=== PATIENT | male | born 1950 | race Two or more races ===

== ENCOUNTER 2017-03-23 21:06 | Inpatient (IN) | payer OTHER ==
[~2017-03-23 21:06] MED LIST: METFORMIN PO SCH; SAXAGLIPTIN PO SCH
[2017-03-23] MEDS ORDERED: Aspirin TAB* 325 MG PO ONE (21:52)
[2017-03-23 22:16] LABS: Hematocrit 43 % (42-52); Hemoglobin 13.8 g/dl (14.0-18.0); Mean Corpuscular HGB Conc 33 g/dl (31-36); Mean Corpuscular Hemoglobin 27 pg (27-31); Mean Corpuscular Volume 85 fL (80-94); Mean Platelet Volume 9 um3 (7.4-10.4); Red Blood Count 5.03 10^6/ul (4.0-5.4); Red Cell Distribution Width 16 % (10.5-15); White Blood Count 7.4 10^3/ul (3.5-10.8)
[2017-03-23 22:33] LABS: ALT 15 U/L (7-52); AST 18 U/L (13-39); Albumin 3.7 g/dL (3.2-5.2); Alkaline Phosphatase 62 U/L (34-104); Anion Gap 4 mmol/L (2-11); BUN/Creatinine Ratio 26.9 (8-20); Blood Urea Nitrogen 25 mg/dL (6-24); CO2 Carbon Dioxide 29 mmol/L (22-32); Calcium 9.1 mg/dL (8.6-10.3); Chloride 103 mmol/L (101-111); EGFR African American 103.9 (>60); EGFR Non-African American 80.8 (>60); Globulin 3.1 g/dL (2-4); Glucose 137 mg/dL (70-100); Potassium 4.3 mmol/L (3.5-5.0); Sodium 136 mmol/L (133-145); Total Protein 6.8 g/dL (6.4-8.9)
[2017-03-23 22:34] LABS: Troponin I 0.01 ng/mL (<0.04)
[2017-03-23 22:47] LABS: Alcohol < 10 mg/dL (<10)
[2017-03-23] MEDS ORDERED: Acetaminophen TAB* 325 MG PO PRN (23:21)
[2017-03-23] MEDS ORDERED: Ondansetron INJ* 2 MG/ML VIAL IV PRN (23:22)
[2017-03-23] MEDS ORDERED: CMCS: Melatonin (NF) 3 MG TAB PO PRN (23:22)
--- NOTE | 2017-03-23 23:25 | HP ---
H&P (Free Text) History and Physical: PCP: in [place] Date/Time of Evaluation: 03/23/2017 2320 CC: L facial droop HPI: Mr Valentine is a 66YO [place]ian male whose Uzbek is fair. He has a HX of DM2 & HTN. He presents for sudden onset L facial droop around 1900 this evening associated with fluid leak from the L mouth with drinking and slurred speech like his tongue was thick. This lasted for less than 10minutes before spontaneously resolving. He denies HX of similar, but does recall having a carotid US in [place] ~1 year ago which was reportedly normal. He called his insurance who advised him to present for evaluation. He currently reports being at baseline without any symptoms. His is present, but speaks very little Uzbek. His daughter who lives in [place] was updated of his condition and findings. 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 Father passed in his 60s of uncertain cause. ROS: as above, otherwise reviewed and all were negative Constitutional: NAD, normally developed, obese male vitals: Vital Signs Temp 37.2 C 03/23/17 22:18 Pulse 93 03/23/17 22:18 Resp 18 03/23/17 22:18 BP 138/75 03/23/17 22:18 Pulse Ox 96 03/23/17 22:18 Intake & Output 03/23/17 03/23/17 03/24/17 11:59 23:59 11:59 Weight 108 kg HEENM: atraumatic; sclera/conjunctiva: non-icteric/clear; hearing: clinically intact; oropharynx: clear, mucosa moist Neck: soft tissue: non-tender; thyroid: normal Pulmonary: clear to auscultation bilaterally, good aeration, no accessory muscle use CV: RR/RR, normal S1S2, no carotid bruit, no jugular venous distention, 2+ B DP/ PT, no edema Abdominal: soft, non-distended, non-tender, no rebound/guarding/rigidity, normoactive bowel sounds, no hepatosplenomegaly or masses, no costovertebral angle tenderness Musculoskeletal: general: grossly intact; gait: stable Integumental: normal appearance and texture of exposed skin Neurological cranial nerves III/IV/: symmetric light reflex, EOMI/PERRLA V: intact facial sensation & mastication VII: very subtle L facial droop, subtle weakness L eye clench VIII: hearing clinically intact IX/X: symmetric palatal motion, no dysarthria XII: midline tongue protrusion, normal voice articulation motor: R-handed LUE: 4+/5 proximally, distally, & 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8 L (14.0-18.0) g/dl Hct 43 (42-52) % MCV 85 (80-94) fL MCH 27 (27-31) pg MCHC 33 (31-36) g/dl RDW 16 H (10.5-15) % Plt Count 259 (150-450) 10^3/ul MPV 9 (7.4-10.4) um3 Neut % (Auto) 65.8 (38-83) % Lymph % (Auto) 19.9 L (25-47) % [place] % (Auto) 9.6 H (1-9) % Eos % (Auto) 3.8 (0-6) % Baso % (Auto) 0.9 (0-2) % Absolute Neuts (auto) 4.9 (1.5-7.7) 10^3/ul Absolute Lymphs (auto) 1.5 (1.0-4.8) 10^3/ul Absolute Monos (auto) 0.7 (0-0.8) 10^3/ul Absolute Eos (auto) 0.3 (0-0.6) 10^3/ul Absolute Basos (auto) 0.1 (0-0.2) 10^3/ul Absolute Nucleated RBC 0 10^3/ul Nucleated RBC % 0 INR (Anticoag Therapy) (0.89-1.11) Sodium 136 (133-145) mmol/L Potassium 4.3 (3.5-5.0) mmol/L Chloride 103 (101-111) mmol/L Carbon Dioxide 29 (22-32) mmol/L Anion Gap 4 (2-11) mmol/L BUN 25 H (6-24) mg/dL Creatinine 0.93 (0.67-1.17) mg/dL Est GFR ( Amer) 103.9 (>60) Est GFR (Non-Af Amer) 80.8 (>60) BUN/Creatinine Ratio 26.9 H (8-20) Glucose 137 H (70-100) mg/dL Lactic Acid 0.8 (0.5-2.0) mmol/L Calcium 9.1 (8.6-10.3) mg/dL Total Bilirubin 0.20 (0.2-1.0) mg/dL AST 18 (13-39) U/L ALT 15 (7-52) U/L Alkaline Phosphatase 62 (34-104) U/L Troponin I 0.01 (<0.04) ng/mL Total Protein 6.8 (6.4-8.9) g/dL Albumin 3.7 (3.2-5.2) g/dL Globulin 3.1 (2-4) g/dL Albumin/Globulin Ratio 1.2 (1-3) Urine Color Urine Appearance Urine pH (5-9) Ur Specific [place] (1.010-1.030) Urine Protein (Negative) Urine Ketones (Negative) Urine Blood (Negative) Urine Nitrate (Negative) Urine Bilirubin (Negative) Urine Urobilinogen (Negative) Ur Leukocyte Esterase (Negative) Urine Glucose (Negative) Serum Alcohol < 10 (<10) mg/dL 03/23/17 03/23/17 Range/Units 22:00 23:55 WBC (3.5-10.8) 10^3/ul RBC (4.0-5.4) 10^6/ul Hgb (14.0-18.0) g/dl Hct (42-52) % MCV (80-94) fL MCH (27-31) pg MCHC (31-36) g/dl RDW (10.5-15) % Plt Count (150-450) 10^3/ul MPV (7.4-10.4) um3 Neut % (Auto) (38-83) % Lymph % (Auto) (25-47) % [place] % (Auto) (1-9) % Eos % (Auto) (0-6) % Baso % (Auto) (0-2) % Absolute Neuts (auto) (1.5-7.7) 10^3/ul Absolute Lymphs (auto) (1.0-4.8) 10^3/ul Absolute Monos (auto) (0-0.8) 10^3/ul Absolute Eos (auto) (0-0.6) 10^3/ul Absolute Basos (auto) (0-0.2) 10^3/ul Absolute Nucleated RBC 10^3/ul Nucleated RBC % INR (Anticoag Therapy) 0.88 L (0.89-1.11) Sodium (133-145) mmol/L Potassium (3.5-5.0) mmol/L Chloride (101-111) mmol/L Carbon Dioxide (22-32) mmol/L Anion Gap (2-11) mmol/L BUN (6-24) mg/dL Creatinine (0.67-1.17) mg/dL Est GFR ( Amer) (>60) Est GFR (Non-Af Amer) (>60) BUN/Creatinine Ratio (8-20) Glucose (70-100) mg/dL Lactic Acid (0.5-2.0) mmol/L Calcium (8.6-10.3) mg/dL Total Bilirubin (0.2-1.0) mg/dL AST (13-39) U/L ALT (7-52) U/L Alkaline Phosphatase (34-104) U/L Troponin I (<0.04) ng/mL Total Protein (6.4-8.9) g/dL Albumin (3.2-5.2) g/dL Globulin (2-4) g/dL Albumin/Globulin Ratio (1-3) Urine Color Straw Urine Appearance Clear Urine pH 5.0 (5-9) Ur Specific [place] 1.011 (1.010-1.030) Urine Protein Negative (Negative) Urine Ketones Negative (Negative) Urine Blood Negative (Negative) Urine Nitrate Negative (Negative) Urine Bilirubin Negative (Negative) Urine Urobilinogen Negative (Negative) Ur Leukocyte Esterase Negative (Negative) Urine Glucose Negative (Negative) Serum Alcohol (<10) mg/dL ECG, personally reviewed: NSR rate 96, no ischemia CT brain WO, personally reviewed: no acute finding, final read pending Impression: 66M HX DM2 & HTN presents with TIA DIAGNOSIS & PLAN Primary TIA : telemetry : aspirin : CTA head/neck : recheck CT brain WO in AM : Yesi Rivero MD neurology consulted via Mojgan Oviedo MD ED; will evaluate in AM : supplemental oxygen : neurochecks : check lipid profile in AM : supportive care Secondary DM2 : continue saxagliptin/metformin once reconciled : ACHS glucometry : check A1c HTN : continue metoprolol & perindopril once reconciled BLE venous insufficiency, chronic : continue diosmin/hesperidin once reconciled Admission Rational: CDU observation for TIA work up DVTp: BRENNA Code Status: full HCP: ; daughter, Oseasda (pronounced [id number]) would like to be called an updated prior to discharge
[2017-03-24 00:03] LABS: Urine Bilirubin Negative (Negative); Urine Glucose Negative (Negative); Urine Nitrite Negative (Negative)
[2017-03-24] MEDS: Omeprazole CAP* 20 MG PO SCH (06:03)
--- NOTE | 2017-03-24 07:27 | RAD ---
INDICATION: Dysarthria. COMPARISON: There are no prior studies available for comparison. TECHNIQUE: Contiguous axial sections of the brain were obtained from the skull base to the vertex without contrast. FINDINGS: The ventricles, cisterns and sulci are within normal limits. There is a small to moderate size area of encephalomalacia present in the left occipital lobe most consistent with an old infarct. No other focal abnormalities or mass effect are seen. There is no evidence for hemorrhage. No significant focal osseous abnormality is seen. The visualized portion of the paranasal sinuses and mastoid air cells appear clear. IMPRESSION: 1. NO EVIDENCE FOR GROSS ACUTE INFARCT, MASS EFFECT OR HEMORRHAGE. 2. OLD LEFT OCCIPITAL LOBE INFARCT.
[2017-03-24] MEDS: Insulin LISPRO* 1 UNITS UNIT SUBCUT SCH ×4 (08:10→20:58)
[2017-03-24] MEDS ORDERED: PERINDOPRIL PO SCH (09:00)
[2017-03-24] MEDS ORDERED: Metoprolol Succinate XL TAB* 50 MG PO SCH (09:00)
[2017-03-24] MEDS: Aspirin EC Low Dose* 81 MG TAB.EC PO SCH (09:11)
[2017-03-24] MEDS: Docusate CAP* 100 MG PO SCH ×2 (09:11→20:53)
[2017-03-24] MEDS ORDERED: Iodixanol* (CONTRAST) 320 MG/ML 100 ML SDV IV ONE (12:31)
--- NOTE | 2017-03-24 13:19 | RAD ---
INDICATION: TIA, CVA workup. COMPARISON: There is an is made with a prior CT of the brain from March 23, 2017. TECHNIQUE: Contiguous axial sections of the brain were obtained from the skull base to the vertex without contrast. FINDINGS: The ventricles, cisterns and sulci are within normal limits. There is a new hypodense area present in the posterior right frontal lobe involving the cortex and subcortical white matter. The hypodense area measures 2.3 x 2.2 cm in size and would be most consistent with a nonhemorrhagic infarct. There is minimal local mass effect with compression of the anterior aspect of the sylvian fissure. Again note is made of a small to moderate size area of encephalomalacia present in the left occipital lobe most consistent with an old infarct. There is no evidence for hemorrhage. No significant focal osseous abnormality is seen. The visualized portion of the paranasal sinuses and mastoid air cells appear clear. IMPRESSION: 1. FINDINGS CONSISTENT WITH AN ACUTE NONHEMORRHAGIC INFARCT IN THE RIGHT FRONTAL LOBE. 2. OLD INFARCT IN THE LEFT OCCIPITAL LOBE.
--- NOTE | 2017-03-24 13:36 | RAD ---
Indication: Transient ischemic attack, stroke. Contrast: Administered 80.2 ml of VISIPAQUE 320 mg/ml CTA of the neck and head was performed after IV contrast administration. Coronal, 3-D reconstructed and sagittal images were obtained. The origins of the great vessels are unremarkable for carotid bulb demonstrates no evidence of calcified plaque. The internal carotid arteries demonstrates no evidence of significant stenosis. No evidence of carotid artery dissection The vertebral arteries demonstrates no evidence of vertebral artery dissection. The intracranial carotid arteries demonstrate no evidence of stenosis. Minimal calcific plaque is noted in the intracavernous portion of the right internal carotid artery. Normal bifurcation is noted with normal anterior and middle cerebral arteries. No aneurysmal dilatation is noted. Middle cerebral artery demonstrates normal trifurcation. No evidence of a residual dilatation is noted. Posterior circulation demonstrates basilar artery to be unremarkable. Posterior cerebral arteries are unremarkable. No branch occlusion or aneurysmal dilatation is noted. IMPRESSION: No aneurysmal dilatation or branch occlusion is identified. Minimal atherosclerosis is noted in the right intracavernous portion of the internal carotid artery.
--- NOTE | 2017-03-24 14:04 | PN ---
Subjective Date of Service: 03/24/17 Interval History: Patient seen and examined at bedside. Pt states that he feels well. He is unaware of any previous CVA. Denies fever, chills, shortness of breath, chest discomfort, N/V/D. Pt states that his presenting symptoms have been resolved since his arrival to the ED (slurred speech and left facial droop). Pt's daughter Stella can be reached at [phone] Tele: Sinus rhythm with 1st degree HB, rate 80-90's. Family History: Unchanged from Admission Social History: Unchanged from Admission Past Medical History: Unchanged from Admission Objective Active Medications: Acetaminophen (Tylenol Tab*) 650 mg PO Q6H PRN Reason: FEVER/PAIN Aspirin (Aspirin Ec Low Dose*) 81 mg PO DAILY MARGE Docusate Sodium (Colace Cap*) 200 mg PO BID MARGE Insulin Human Lispro (Humalog*) 0 units SUBCUT ACHS MARGE Reason: Protocol Melatonin (Melatonin (Nf)) 3 mg PO BEDTIME PRN; Protocol Reason: Sleep Metoprolol Succinate (Toprol Xl Tab*) 50 mg PO QAM MARGE Perindopril 4 (Mg Tablets) 4 mg PO QAM MARGE Omeprazole (Prilosec Cap*) 20 mg PO DAILY@0600 MARGE Ondansetron HCl (Zofran Inj*) 4 mg IV Q6H PRN Reason: NAUSEA Saxagliptin/Metformin HCl (Kombiglyze Xr 12/999(Nf)) 1 tab PO QPM [facility] Vital Signs 03/24/17 03/24/17 03/24/17 00:47 00:51 01:00 Temperature 97.8 F Pulse Rate 88 Respiratory 17 16 13 Rate Blood Pressure 152/86 (mmHg) O2 Sat by Pulse 97 Oximetry 03/24/17 03/24/17 03/24/17 04:00 04:03 05:00 Temperature 98.3 F Pulse Rate 69 Respiratory 47 16 13 Rate Blood Pressure 113/69 (mmHg) O2 Sat by Pulse 95 Oximetry 03/24/17 03/24/17 03/24/17 06:00 07:39 11:35 Temperature 97.1 F 97.9 F Pulse Rate 72 73 Respiratory 5 18 16 Rate Blood Pressure 124/68 132/69 (mmHg) O2 Sat by Pulse 96 97 Oximetry 03/24/17 12:01 Temperature 97.8 F Pulse Rate 72 Respiratory 16 Rate Blood Pressure 130/73 (mmHg) O2 Sat by Pulse 98 Oximetry Oxygen Devices in Use Now: None Appearance: NAD, laying in bed Respiratory: Symmetrical Chest Expansion and Respiratory Effort, Clear to Auscultation Cardiovascular: NL Sounds; No Murmurs; No JVD, RRR Abdominal: NL Sounds; No Tenderness; No Distention Extremities: No Edema Skin: No Rash or Ulcers Neurological: Alert and Oriented x 3, NL Muscle Strength and Tone, - - 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 Lines/Tubes/Other Access: Clean, Dry and Intact Peripheral IV - site benign Nutrition: Taking PO's Result Diagrams: 03/23/17 22:00 03/23/17 22:00 Assess/Plan/Problems-Billing Assessment: - Patient Problems (1) CVA (cerebral vascular accident) Code(s): I63.9 - CEREBRAL INFARCTION, UNSPECIFIED SNOMED Code(s): 258832593 Comment: - CT 03/23 - No evidence for gross acute infarct, mass effect or hemorrhage, old occipital lobe infarct - CT 8/2 -acute nonhemorrhagic infarct in the right frontal lobe, old infarct in the left occipital lobe - CTA head and neck - no aneurysmal dilation or branch occlusion, minimal atherosclerosis in the right intracavernoud portion of the internal carotid artery - PT/OT eval - Neurology consult pending - Check TTE, Brain MRI, and TSH - Continue Neurologic checks - Continue ASA - Will start atorvastatin (2) Diabetes Code(s): E11.9 - TYPE 2 DIABETES MELLITUS WITHOUT COMPLICATIONS SNOMED Code(s) : 79442938 Comment: - Glucose 90-130's - Hold saxagliptin/metformin - Glucose checks ACHS - Continue Lispro SS (3) HTN (hypertension) Code(s): I10 - ESSENTIAL (PRIMARY) HYPERTENSION SNOMED Code(s): 85819921 Comment: - SBP 110s-150s - Hold metoprolol and Perindopril to allow for permissive HTN (4) Venous insufficiency Comment: - Continue diosmin/hesperidin (5) DVT prophylaxis Code(s): XSD4378 - SNOMED Code(s): 931456453 Comment: - SQ heparin (6) Full code status Current Visit: Yes Status: Acute Code(s): Z78.9 - OTHER SPECIFIED HEALTH STATUS SNOMED Code(s): 763311180 Status and Disposition: OBV to Inpatient. Discharge to home when medically stable.
[2017-03-24 14:49] LABS: TSH (Thyroid Stimulating Horm) 3.05 mcIU/mL (0.34-5.60)
[2017-03-24] MEDS: Atorvastatin* 80 MG TAB PO SCH (16:58)
--- NOTE | 2017-03-24 17:01 | ECHO ---
Patient: HAI AREVALO [facility] Rec#: [id number] : 1950 Date: 03/24/2017 Age: 66y Height: 185.42 cm / 73.0 in Weight: 108.41 kg / 238.9 lbs Sex: M BSA: 2.32 Room#: 442 Admit Date#: 03/23/2017 Type: Inpatient Referring: Coty Henriquez NP Reading: Jodie Fonseca MD Database Admin: Magdalena Conway RDCS Transthoracic Echocardiogram Indication: CVA BP: 130/73 HR: 83 Rhythm: NSR Findings History: TIA/CVA,DM,HTN. Technical Comments: The study is technically difficult. Due to language barrier. Left Ventricle: The left ventricular chamber size is decreased. Mild concentric left ventricular hypertrophy is observed. Global left ventricular wall motion and contractility are within normal limits. Left ventricular systolic function is at the lower limits of normal. The estimated ejection fraction is 50-55%. Abnormal left ventricular diastolic function is observed. Left Atrium: The left atrium is mildly dilated. Right Ventricle: The right ventricular cavity size is normal. The right ventricular global systolic function is normal. Right Atrium: The right atrium is slightly dilated. A prominent chiari network is noted in the right atrium. A patent foramen ovale is visualized. There is a patent foramen ovale with predominant [id number] shunting.Multiple early bubbles seen crossing right into left through the foraman ovale, negative contrast also seen in RA A patent foramen ovale is demonstrated by agitated contrast. Aortic Valve: The aortic valve is trileaflet. There is no evidence of aortic regurgitation. There is no evidence of aortic stenosis. Mitral Valve: The mitral valve leaflets are mildly thickened. There is no evidence of mitral regurgitation. There is no evidence of mitral stenosis. Tricuspid Valve: The tricuspid valve leaflets are normal. There is mild tricuspid regurgitation. The tricuspid regurgitant jet is directed toward the RA free wall. There is evidence of borderline pulmonary hypertension. There is no tricuspid stenosis. Pulmonic Valve: The pulmonic valve appears normal. There is no evidence of pulmonic regurgitation. There is no pulmonic stenosis. Pericardium: The pericardium appears normal. Aorta: There is mild dilatation of the ascending aorta. There is no dilatation of the aortic arch. There is mild dilatation of the aortic root. Pulmonary Artery: The main pulmonary artery appears normal. Venous: The venous system is not well visualized. Contrast: Normal saline was used as contrast for the bubble study. Intravenous contrast was used to help determine presence of intracardiac shunting. Conclusions Mild concentric left ventricular hypertrophy is observed. The estimated ejection fraction is 50-55%. Abnormal left ventricular diastolic function is observed. The right ventricular global systolic function is normal. Mild bi atrial enlargement. There is a patent foramen ovale noted. Multiple early bubbles seen crossing right into left through the foraman ovale, negative contrast also seen in the right atrium with saline bubble contrast. All valves show good function. There is mild tricuspid regurgitation. PA pressure 34 mmHg. No prior echo available to compare. Measurements Name Value Normal Range RVIDd (AP) 2D 3.6 cm (0.9 - 2.6) RVDdMajor (2D) 3.2 cm (2.2 - 4.4) RAd ISD 4CH 5.4 cm (3.4 - 4.9) RA (A4C)W 2.9 cm (2.9 - 4.6) IVSd (2D) 1.2 cm (0.6 - 1) LVPWd (2D) 1.1 cm (0.6 - 1) LVIDd (2D) 3.3 cm (3.6 - 5.4) LVIDs (2D) 2.6 cm - LV FS (2D) 22 % (25 - 45) Aortic Annulus 2.4 cm (1.4 - 2.6) Ao root diameter (2D) 3.8 cm (2.1 - 3.5) Ascending Ao 3.5 cm (2.1 - 3.4) Aortic arch 2.7 cm (1.8 - 3.4) Descending Ao 0.7 cm - LA dimension (AP) 2D 4.5 cm (2.3 - 3.8) LAd ISD 4CH 5.2 cm (2.9 - 5.3) LA ISD 4CH W 3.8 cm (2.5 - 4.5) Name Value Normal Range LA ESV SP 4CH (A/L) 51 ml - LA ESV SP 2CH (A/L) 49 ml - LA ESV BP (A/L) 51 ml - LA ESV BP (A/L) index 21.77 ml/m2 - LA ESV SP 4CH (MOD) 46 ml - LA ESV SP 2CH (MOD) 47 ml - Name Value Normal Range MV E-wave Vmax 0.8 m/sec - MV deceleration time 131 msec - MV A-wave Vmax 1 m/sec - MV E:A ratio 0.81 ratio - LV septal e' Vmax 0.09 m/sec - LV lateral e' Vmax 0.11 m/sec - LV E:e' septal ratio 8.89 ratio - LV E:e' lateral ratio 7.27 ratio - Name Value Normal Range AV Vmax 1 m/sec - AV VTI 24.7 cm - AV peak gradient 3.99 mmHg - AV mean gradient 2.11 mmHg - LVOT Vmax 0.8 m/sec - LVOT VTI 18.5 cm - LVOT peak gradient 2.72 mmHg - LVOT mean gradient 1.47 mmHg - Name Value Normal Range TR Vmax 2.6 m/sec - TR peak gradient 26 mmHg - RAP 8 mmHg - RVSP 34 mmHg - Name Value Normal Range PV Vmax 0.8 m/sec - PV peak gradient 2.8 mmHg -
--- NOTE | 2017-03-24 17:02 | RAD ---
INDICATION: CVA COMPARISON: CT brain March 24, 2017; CTA head and neck March 24, 2017 TECHNIQUE: sagittal T1 FLAIR, axial diffusion, axial T1 FLAIR, axial T2, axial T2 FLAIR, and SWI images were acquired. FINDINGS: Craniocervical junction: The craniocervical junction appears normal. Ventricles/sulci: The ventricles and cisterns are normal in size and configuration for age. Brain parenchyma: Diffusion weighted images show increased signal in the right frontal lobe. The SWI images confirm the presence of a small amount of petechial hemorrhage. There are no other acute focal parenchymal abnormalities. There is an old left occipital infarct There is a small amount of localized mass effect with sulcal effacement in the right frontal region. Intracranial hemorrhage: Petechial hemorrhage associated with acute right frontal infarct. Extra-axial spaces: There are no extra-axial fluid collections or masses. Orbits: There are no MR abnormalities of the orbital structures. Paranasal sinuses/mastoid: The paranasal sinuses are clear. The mastoid air cells are well aerated.. Vascular: No abnormalities are seen. Other: None IMPRESSION: ACUTE RIGHT FRONTAL INFARCT WITH ASSOCIATED PETECHIAL HEMORRHAGE . OLD LEFT OCCIPITAL INFARCT.
[2017-03-24] MEDS: Heparin VIAL(*) 5000 UNITS/ML VIAL (FIVE THOUSAND) SUBCUT SCH (20:54)
--- NOTE | 2017-03-25 00:57 | CONS ---
CONSULTATION REPORT: DATE OF CONSULT: 03/24/17 The requesting caregiver is Coty Hawkins NP. 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 With help of his daughter translating and his at his side, they indicated that the left side of face was moving slower and saliva was coming out of that region. His could not understand him speaking. Of note, he is right-handed. He had no difficulty moving his limbs. No numbness. He denied any vision changes. There was no chest pain, chest pressure, palpitations, shortness of breath. At this point, he feels back to normal. In workup of his symptoms, he had a CT in the emergency room and a repeat CT today, which showed an evolving right frontal stroke. Both CTs showed old encephalomalacia in the left occipital lobe. PAST MEDICAL HISTORY: Includes: 1. Diabetes, type 2. 2. Hypertension. 3. High cholesterol. MEDICATIONS: Include: 1. AAS Protect, which is acetylsalicylic acid 100 mg p.o. daily. 2. He is also on perindopril arginine, a long-acting MAGUE inhibitors with combination with amlodipine, which is listed as 4 mg p.o. q.a.m. 3. He takes a combination pill metformin/saxagliptin for diabetes dose listed as 12/999 one tablet p.o. q.p.m., saxagliptin is noted to be regulator of insulin levels. 4. He is taking metoprolol 50 mg p.o. a.m. In hospital, he has been continued on: 1. Aspirin 81 mg a day. 2. Atorvastatin has been started at 80 mg a day. 3. Acetaminophen as needed 650 mg p.o. q.6 hours. 4. Colace 200 mg p.o. b.i.d. 5. Heparin 5000 subcu q.8 hours. 6. Insulin human lispro per protocol. 7. Melatonin 3 mg p.o. q.h.s. p.r.n. insomnia. 8. Omeprazole 20 mg p.o. daily. 9. Ondansetron 4 mg IV q.6 hours p.r.n. nausea. Metformin was held after contrast used in CTA brain and neck. ALLERGIES: He has no known drug allergies. 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 His daughter served as finance administrator. She lives in the [facility]. 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 He does not smoke, drink alcohol, or use recreational drugs. FAMILY HISTORY: Reported as mother dying in her 80s with intestinal problems and a father dying at 60 of unknown cause. REVIEW OF SYSTEMS: There has been no recent illnesses, fevers, rashes. No previous known stroke. He denies change in vision, numbness or weakness of arms or legs. Change in coordination or gait. Change in bowel or bladder function. Please see past medical history and HPI for further positive and negative findings. PHYSICAL EXAMINATION: On examination, his most recent vitals include a blood pressure of 130/73, pulse was 72, respiratory rate 16, temperature 97.8 degrees Fahrenheit. He had regular cardiac rhythm. Lungs were clear to auscultation. There is no carotid bruit. He is awake, alert, articulate. Yi is the second language; however, he was able to communicate. More complex commands, needed translation, and we used his daughter as a finance administrator to ensure communication. He had full extraocular movements. Full novak to confrontation. There was no nystagmus. Facial expression, sensation, hearing were equal. Palate was upgoing. Tongue was midline. Sternocleidomastoid and trapezius were 5/5 in strength. There was normal bulk and tone, no pronator drift. Full strength in the upper and lower extremities with normal finger-to- nose and heel-to- davey movements. He denied any asymmetries to pinprick, cold, or light touch. Reflexes are 2+ in the upper extremities, 1+ at the knees, absent at the ankles. Toes are flexor response. His Romberg was minimally wobbly. He could independently, walk on his heels and his toes. LABORATORY/RADIOLOGY DATA: His CBC showed normal white count, hemoglobin slightly low at 13.8, normal hematocrit and normal platelets. His INR was low at 0.88. His metabolic panel revealed elevated BUN with elevated BUN and creatinine ratio at 26.9, glucose was 137. His hemoglobin A1c was slightly elevated at 6.3. Liver function tests were within normal limits. His total cholesterol was 155, triglycerides 79, LDL 107, HDL 32, TSH was 3.05. Urinalysis was negative. Serum alcohol was less than 10. Initial Hospitalist consultation was reviewed. CT and CTA of the brain were reviewed directly. CTA of the brain and neck did not show any significant stenosis, minimal atherosclerosis was noted in the right intracavernous portion of the internal carotid artery. Repeat CT brain showed not only the finding of old left occipital lobe stroke with encephalomalacia, but also acute nonhemorrhagic stroke in the right frontal region. IMPRESSION: Mr. Valentine is a 66-year-old gentleman with a history of diabetes , hypertension, high cholesterol, on aspirin and blood pressure medications and medication for glucose control, who presents with transient neurologic symptoms ; however, significant findings of new and old stroke on CT Brain. The history and findings are suggestive of acute stroke, and we will further define pathology with MRI of the brain. He is being monitored on telemetry and we will obtain an echocardiogram with bubble study to look for embolic source of stroke. His lipid profile shows total cholesterol 155 with LDL of 104 and I have suggested starting a statin (atorvastatin). He was on aspirin at baseline and we may consider double antiplatelet therapy depending on results of scan. Further input will be given tomorrow when we have results of above studies. Translation with daughter was helpful for ensuring understanding. [id number]/[facility] #: [id number] CAL
[2017-03-25] MEDS: Omeprazole CAP* 20 MG PO SCH (06:02)
[2017-03-25] MEDS: Heparin VIAL(*) 5000 UNITS/ML VIAL (FIVE THOUSAND) SUBCUT SCH (06:02)
--- NOTE | 2017-03-25 08:21 | PN ---
Subjective Date of Service: 03/25/17 Interval History: Patient seen and examined at bedside. Pt states that he is feeling well and is anxious for discharge. Denies fever, chills, shortness of breath, chest discomfort, N/V/D. Tele: Sinus rhythm, rate 70-90's. Family History: Unchanged from Admission Social History: Unchanged from Admission Past Medical History: Unchanged from Admission Objective Active Medications: Acetaminophen (Tylenol Tab*) 650 mg PO Q6H PRN Reason: FEVER/PAIN Aspirin (Aspirin Ec Low Dose*) 81 mg PO DAILY [facility] Atorvastatin Calcium (Lipitor*) 80 mg PO 1700 [facility] Docusate Sodium (Colace Cap*) 200 mg PO BID [facility] Insulin Human Lispro (Humalog*) 0 units SUBCUT ACHS [facility] Melatonin (Melatonin (Nf)) 3 mg PO BEDTIME PRN; Protocol Reason: Sleep Omeprazole (Prilosec Cap*) 20 mg PO DAILY@0600 [facility] Ondansetron HCl (Zofran Inj*) 4 mg IV Q6H PRN Reason: NAUSEA Vital Signs 03/24/17 03/24/17 03/24/17 15:24 19:29 19:40 Temperature 98.4 F 98.1 F 98.4 F Pulse Rate 73 77 75 Respiratory 16 16 Rate Blood Pressure 122/72 132/74 128/65 (mmHg) O2 Sat by Pulse 96 98 97 Oximetry 03/24/17 03/24/17 03/25/17 20:34 20:45 00:09 Temperature 98.6 F Pulse Rate 79 Respiratory 16 20 Rate Blood Pressure 131/79 (mmHg) O2 Sat by Pulse 96 97 Oximetry 03/25/17 03/25/17 03/25/17 03:33 07:13 07:22 Temperature 98.6 F 98.2 F Pulse Rate 73 77 Respiratory 18 20 12 Rate Blood Pressure 124/73 130/77 (mmHg) O2 Sat by Pulse 96 95 Oximetry Oxygen Devices in Use Now: None Appearance: NAD, laying in bed Ears/Nose/Mouth/Throat: Mucous Membranes Moist Respiratory: Symmetrical Chest Expansion and Respiratory Effort, Clear to Auscultation Cardiovascular: NL Sounds; No Murmurs; No JVD, RRR Abdominal: NL Sounds; No Tenderness; No Distention Extremities: No Edema Skin: No Rash or Ulcers Neurological: Alert and Oriented x 3, NL Muscle Strength and Tone Lines/Tubes/Other Access: Clean, Dry and Intact Peripheral IV - site benign Nutrition: Taking PO's Result Diagrams: 03/23/17 22:00 03/23/17 22:00 Assess/Plan/Problems-Billing Assessment: - Patient Problems (1) CVA (cerebral vascular accident) Code(s): I63.9 - CEREBRAL INFARCTION, UNSPECIFIED SNOMED Code(s): 657016257 Comment: - CT 03/23 - No evidence for gross acute infarct, mass effect or hemorrhage, old occipital lobe infarct - CT 03/24 -acute nonhemorrhagic infarct in the right frontal lobe, old infarct in the left occipital lobe - CTA head and neck - no aneurysmal dilation or branch occlusion, minimal atherosclerosis in the right intracavernous portion of the internal carotid artery - MRI - Acute right frontal infarct with associated petechial hemorrhage. Old left occipital infarct - TTE - EF 50-55%, abnormal lv diastolic function, PFO - PT/OT eval pending - Neurology consult, input appreciated - Continue Neurologic checks - Continue ASA and atorvastatin - Will check bilateral venous doppler to eval for DVT and TREVON to eval for a right atrium clot (2) Diabetes Code(s): E11.9 - TYPE 2 DIABETES MELLITUS WITHOUT COMPLICATIONS SNOMED Code(s) : 20131301 Comment: - Glucose 100-120's - Hold saxagliptin/metformin - Glucose checks ACHS - Continue Lispro SS (3) HTN (hypertension) Code(s): I10 - ESSENTIAL (PRIMARY) HYPERTENSION SNOMED Code(s): 41374557 Comment: - SBP 120s-130s - Hold metoprolol and Perindopril to allow for permissive HTN (4) HLD (hyperlipidemia) Code(s): E78.5 - HYPERLIPIDEMIA, UNSPECIFIED SNOMED Code(s): 61058996 Comment: - Continue atorvastatin (5) Venous insufficiency Comment: - Continue diosmin/hesperidin (6) DVT prophylaxis Code(s): QEY6575 - SNOMED Code(s): 877253723 Comment: - TEDs - Hold chemical DVT prophylaxis d/t petechial hemorrhage (7) Full code status Current Visit: Yes Status: Acute Code(s): Z78.9 - OTHER SPECIFIED HEALTH STATUS SNOMED Code(s): 652209684 Status and Disposition: Inpatient. Discharge to home when medically stable.
[2017-03-25] MEDS: Insulin LISPRO* 1 UNITS UNIT SUBCUT SCH ×4 (09:21→19:53)
[2017-03-25] MEDS: Docusate CAP* 100 MG PO SCH ×2 (09:29→19:58)
[2017-03-25] MEDS: Aspirin EC Low Dose* 81 MG TAB.EC PO SCH (09:29)
--- NOTE | 2017-03-25 09:45 | RAD ---
INDICATION: Patent foramen ovale evaluate for lower extremity deep venous thrombosis. COMPARISON: There are no prior studies available for comparison. TECHNIQUE: Multiple real-time, color flow and Doppler tracings of both lower extremities were obtained. FINDINGS: The common femoral, femoral, profunda femoral and popliteal veins all demonstrate normal compressibility, augmentation with compression and phasic response with respiration. Examination of the calves was slightly limited. The posterior tibial and peroneal veins demonstrate normal compressibility and augmentation with compression. IMPRESSION: SLIGHTLY LIMITED EXAM, NO EVIDENCE FOR DEEP VENOUS THROMBOSIS.
[2017-03-25] MEDS: Atorvastatin* 80 MG TAB PO SCH (16:32)
[2017-03-26] MEDS: Omeprazole CAP* 20 MG PO SCH (05:37)
--- NOTE | 2017-03-26 08:06 | PN ---
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 He was found to have an evolving right frontal ischemic stroke with hemorrhagic conversion, which was cortical on MRI. Since last night, he has had no further symptoms. He has been walking around on the floor and feels good. There has been no headache. He has continued to be monitored on telemetry with no evidence of atrial fibrillation. He is interested in discharge. 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 At this point, he is prepared to return to [place] and would like to do further workup suggested in [place]. On today's visit, we had an extensive conversation regarding the potential etiologies of stroke, the workup to date, the treatment, and my suggestions for further evaluation and treatment. Over an hour was spent in direct face-to- face patient care with over 50% of the time spent in education regarding the following issues. In regards to differential diagnosis, the stroke may be thromboembolic. There is some atherosclerotic plaque in the right intracavernous ICA. He is on aspirin at baseline and I have suggested continuing this medication. We have added atorvastatin high dose 80 mg in the setting of an acute stroke. I would not, at this time, add a second antiplatelet agent (as studied in the Sammpris trial) secondary to hemorrhage on MRI. Cardioembolic source is also a possible etiology. No atrial fibrillation has been seen to date. I would continue to monitor him overnight. If no atrial fibrillation is seen, I would consider long-term monitoring with a LINQ monitor or extended Holter monitor upon return home. No cardioembolic source is noted on transthoracic echocardiogram. Bubble study did show PFO. I would recommend a transesophageal echocardiogram to 100% exclude clot. Given the fact that if a clot was found at this time, we would not anticoagulate given the hemorrhage on MRI, it is okay to wait one week and go home to [place] for this test. At that point, if there is stabilization of hemorrhage and a cardioembolic source is found, then anticoagulation would be appropriate. Differential diagnosis also includes paradoxical emboli in the setting of travel and PFO. Ultrasound of the lower extremities did not show evidence of DVT. He is on aspirin, which is the treatment for PFO. There is no septal aneurysm to suggest need for further therapy. I have talked to him at length about the importance of hydration to prevent clots from occurring. He should avoid caffeine and alcohol. He must have frequent movement of his limbs while on the plane to prevent DVT. At this point, he will cut short his stay in the [place] and go home, hopefully this weekend. I have talked to the hospitalist team about providing a letter for the airport to help arrange assistance. There should be NO heavy lifting. I would like him to avoid the stress of the airports with help of assistance. He should be able to be in a wheelchair and be taken straight to security and not have to wait in line. He should carry with him a copy of his medical records from this hospitalization as well as images burned on disc of his studies including his CT scans, MRI scans, and echocardiogram. He is to get further workup in [place], and I emphasize the importance of seeing not only a neurologist but also a 8th grade mathematics teacher. I would recommend a transesophageal echocardiogram to get closer look at this heart as noted above. I would recommend long-term monitoring for atrial fibrillation, close followup regarding his sugar control, his blood pressure, lipids, as well as to make sure he does not have side effects of statin. I have asked the hospitalist team to provide at least a month's supply of atorvastatin, and his neurologist and 8th grade mathematics teacher may need to convert this to medication used in [place] in this class. Education was given regarding diet and activity in the setting of stroke, and studies regarding Mediterranean diet and stroke. All questions were answered. Emphasis was made on the fact that he has had a previous stroke in the occipital lobe and now he has had repeat stroke, which is very concerning for potential for cardioembolic or paradoxical stroke. Differential diagnosis, of course, does include thromboembolic as noted above. [id number]/[facility] #: [id number] CAL
[2017-03-26] MEDS: Docusate CAP* 100 MG PO SCH (08:34)
[2017-03-26] MEDS: Aspirin EC Low Dose* 81 MG TAB.EC PO SCH (08:34)
--- NOTE | 2017-03-26 08:40 | PN ---
Subjective Date of Service: 03/26/17 Interval History: Patient seen and examined at bedside. Denies fever, chills, shortness of breath , chest discomfort, N/V/D. Discharge instructions given to patient and and to daughter via phone. Tele: Sinus rhythm with 1st degree block, rate 70-80s. Family History: Unchanged from Admission Social History: Unchanged from Admission Past Medical History: Unchanged from Admission Objective Active Medications: Acetaminophen (Tylenol Tab*) 650 mg PO Q6H PRN Reason: FEVER/PAIN Aspirin (Aspirin Ec Low Dose*) 81 mg PO DAILY [facility] Atorvastatin Calcium (Lipitor*) 80 mg PO 1700 [facility] Docusate Sodium (Colace Cap*) 200 mg PO BID [facility] Insulin Human Lispro (Humalog*) 0 units SUBCUT ACHS [facility] Melatonin (Melatonin (Nf)) 3 mg PO BEDTIME PRN; Protocol Reason: Sleep Omeprazole (Prilosec Cap*) 20 mg PO DAILY@0600 [facility] Ondansetron HCl (Zofran Inj*) 4 mg IV Q6H PRN Reason: NAUSEA Vital Signs 03/25/17 03/25/17 03/25/17 11:15 15:21 19:47 Temperature 98.5 F 98.6 F 98.8 F Pulse Rate 77 80 85 Respiratory 16 16 16 Rate Blood Pressure 139/81 134/72 142/80 (mmHg) O2 Sat by Pulse 98 98 97 Oximetry 03/25/17 03/25/17 03/26/17 20:00 23:52 03:34 Temperature 99.3 F 99.1 F Pulse Rate 91 79 Respiratory 16 16 16 Rate Blood Pressure 126/78 123/77 (mmHg) O2 Sat by Pulse 94 96 Oximetry Oxygen Devices in Use Now: None Appearance: NAD, laying in bed Ears/Nose/Mouth/Throat: Mucous Membranes Moist Respiratory: Symmetrical Chest Expansion and Respiratory Effort, Clear to Auscultation Cardiovascular: NL Sounds; No Murmurs; No JVD, RRR Abdominal: NL Sounds; No Tenderness; No Distention Extremities: No Edema Skin: No Rash or Ulcers Neurological: Alert and Oriented x 3, NL Muscle Strength and Tone Lines/Tubes/Other Access: Clean, Dry and Intact Peripheral IV - site benign Nutrition: Taking PO's Result Diagrams: 03/23/17 22:00 03/23/17 22:00 Assess/Plan/Problems-Billing Assessment: - Patient Problems (1) CVA (cerebral vascular accident) Code(s): I63.9 - CEREBRAL INFARCTION, UNSPECIFIED SNOMED Code(s): 947656469 Comment: - CT 03/23 - No evidence for gross acute infarct, mass effect or hemorrhage, old occipital lobe infarct - CT 03/24 -acute nonhemorrhagic infarct in the right frontal lobe, old infarct in the left occipital lobe - CTA head and neck - no aneurysmal dilation or branch occlusion, minimal atherosclerosis in the right intracavernous portion of the internal carotid artery - MRI - Acute right frontal infarct with associated petechial hemorrhage. Old left occipital infarct - TTE - EF 50-55%, abnormal lv diastolic function, PFO - Bilateral venous doppler - limited study but no DVT - No PT/OT needs identified - Neurology consult, input appreciated - Continue ASA and atorvastatin (2) Diabetes Code(s): E11.9 - TYPE 2 DIABETES MELLITUS WITHOUT COMPLICATIONS SNOMED Code(s) : 70682828 Comment: - Glucose 100-140's - Resume saxagliptin/metformin (3) HTN (hypertension) Code(s): I10 - ESSENTIAL (PRIMARY) HYPERTENSION SNOMED Code(s): 74344956 Comment: - SBP 120s-140s - Resume metoprolol and Perindopril (4) HLD (hyperlipidemia) Code(s): E78.5 - HYPERLIPIDEMIA, UNSPECIFIED SNOMED Code(s): 53592297 Comment: - Continue atorvastatin (5) Venous insufficiency Comment: - Continue diosmin/hesperidin (6) DVT prophylaxis Code(s): ESN7563 - SNOMED Code(s): 628780248 Comment: - TEDs - Hold chemical DVT prophylaxis d/t petechial hemorrhage (7) Full code status Status: Acute Code(s): Z78.9 - OTHER SPECIFIED HEALTH STATUS SNOMED Code(s) : 673586062 Status and Disposition: Inpatient. Plan for discharge today and return to [place] on Wednesday.
--- NOTE | 2017-03-26 09:27 | DS ---
DATE OF ADMISSION: 03/23/17 DATE OF DISCHARGE: 03/26/17 ATTENDING PHYSICIAN: Dr. Heath Angelo * (dictated by Coty Ortiz NP) PRIMARY CARE PROVIDER: In [place]. PRIMARY DIAGNOSES: 1. Right frontal ischemic stroke with hemorrhagic conversion (cortical). 2. Hyperlipidemia. SECONDARY DIAGNOSES: 1. Hypertension. 2. Diabetes mellitus. 3. Bilateral lower extremity venous insufficiency. 4. 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 Dr. Magdalena Bernstein with Neurology. STUDIES WHILE IN HOSPITAL: 1. Brain CT on 03/23/17 - radiologist's impression: No evidence for gross acute infarct, mass effect or hemorrhage. Old left occipital lobe infarct. 2. Brain CT on 03/24/17 - radiologist's impression: Findings consistent with an acute non-hemorrhage infarct in the right frontal lobe. Old infarct in the left occipital lobe. 3. Head CTA on 03/24/17 - radiologist's impression: No aneurysmal dilation or branch occlusion is identified. Minimal atherosclerosis is noted in the right intracavernous portion of the internal carotid artery. 4. Brain MRI on 03/24/17 - radiologist's impression: Acute right frontal infarct with associated petechial hemorrhage. Old left occipital infarct. 5. Transthoracic echocardiogram on 03/24/17 - it security consultant's conclusion: Mild concentric left ventricular hypertrophy is observed. The estimated ejection fraction is 50-55%. Abnormal left ventricular diastolic function is observed. The rihgt ventricular global systolic function is normal. Mild biatrial enlargement. There is a patent foramen ovale noted. Multiple early bubbles seen crossing rihgt into left through the foramen ovale, negative contrast also in the right atrium with saline bubble contrast. All valves show good function. There is mild tricuspid regurgitation. PA pressure 34 mmHg. No prior echo available to compare. 6. Bilateral lower extremity venous Doppler on 03/25/17 - radiologist's impression: Slightly limited exam; no evidence for deep venous thrombosis. DISCHARGE MEDICATIONS: [facility] Medications: 1. Atorvastatin 80 mg oral daily. 2. Aspirin 81 mg oral daily or AAS protect 100mg (available in [place]). Continued Home Medications: 1. Multivitamin one tablet oral daily. 2. Kombiglyze XR (Saxagliptin/Metformin) 12/999 one tablet oral every evening. 3. Daflon (diosmina & hesperidina) 1000 mg oral daily 4. Metoprolol succinate (Succinato de metoprolol) 50 mg oral daily. 5. Perindopril 4 mg oral daily. HISTORY OF PRESENT ILLNESS: Mr. Valentine is a 66-year-old male with past medical history significant for diabetes mellitus, hypertension, and bilateral lower extremity venous insufficiency, who is here in the [facility] visiting his daughter in town for his job, who presented to the emergency room after a sudden onset of left-sided facial droop with associated fluid leaking from the left side of his mouth while he was drinking and slurred speech. This lasted for approximately 10 minutes before it spontaneously resolved. The patient denied any history of similar episode, but he did recall having carotid ultrasounds in [place] approximately a year ago which were reportedly normal. The patient called his insurance company who advised him to present to the emergency room for evaluation. While in the ER, the patient was back to his baseline. He had a CTA of his brain that had no acute findings. He had an EKG showing normal sinus rhythm, and no signs of ischemia. The hospitalists were asked to evaluate the patient for admission. While in the hospital, the patient's neurological status remained at his baseline. He underwent a repeat CT on the morning of 03/24/17 showing an old left occipital lobe infarct in addition to an acute non-hemorrhagic infarct of the right frontal lobe. He also underwent a head CTA showing minimal atherosclerosis noted in the right intracavernous portion of the internal carotid artery. The patient also had a brain MRI showing an acute right frontal infarct with associated petechial hemorrhage and an old left occipital infarct. Dr. Magdalena Bernstein with neurology consulted on the patient. It was decided the patient should have an echocardiogram with a bubble study. He had a fasting lipid profile showing a cholesterol of 155 and an LDL of 104. It was recommended that the patient be started on a statin, and he was started on high- dose Atorvastatin. The patient underwent the transesophageal echocardiogram that showed patent foramen ovale. The patient then underwent bilateral venous Doppler ultrasounds to evaluate for DVTs. Although this was a limited study, there were no DVTs noted. The patient was monitored on telemetry and there was no source of a cardioembolic noted. There was no atrial fibrillation. It was felt that the patient should consider long-term cardiac monitoring at discharge. As this could represent a cardioembolic stroke, it was recommended that the patient have a transesophageal echo to evaluate for any clot formation in the right atrium. But, due to the hemorrhage on MRI at this point, the patient was not placed on dual-antiplatelet therapy and is recommended no heavy lifting. It was also felt that this could be a paradoxical embolus due to the patient's patent foramen ovale. There was no septal aneurysm noted. The patient is on aspirin reportedly at baseline. It was felt that, due to the patient's cutting his stay short in the [facility], that we would hold on a transesophageal echocardiogram here, and have him further his stroke workup in [place]. Mr. Valentine is stable for discharge today. VITAL SIGNS: Temperature 99.1, heart rate 79, respiratory rate 16, O2 sat 96% on room air, blood pressure 123/77. DISCHARGE PLAN: Mr. Valentine will be discharged today with plans to return to [place] this weekend. Activity as tolerated, but no heavy lifting. As far as the patient's acute right frontal ischemic stroke with hemorrhage conversion, he should be continued on Atorvastatin high dose or a similar statin available in [place]. The patient has been started on an aspirin 81 mg daily here, and should take the equivalent to that in [place] (AAS protect 100mg) . At this time it is not recommended that he be started on Plavix due to his hemorrhage. No atrial fibrillation was seen here while on telemetry monitoring. He should be considered for long-term cardiac monitoring. It's also recommended the patient have a transesophageal echocardiogram in the near future. The patient should have close follow-up monitoring of his blood pressure, glucose, lipids, and the side effects of his statin. He also needs education regarding his diet and activity. For the Patent foramen ovale, he is already on aspirin and has no signs of a DVT on Doppler, he should stay hydrated, avoid caffeine and alcohol. While he' s on the plane, he needs to have frequent movement. As far as the patient's hypertension, his blood pressures have been normotensive off of his blood pressure medications. He has been resumed on his Perindopril and Metoprolol succinate (Succinato de metoprolol). The patient has been instructed to call 911 while in the [facility] for any medical emergencies. He's been asked to follow up with his primary care provider in [place] as soon as possible once he returns. This is a summarized report of a complex medical history and hospital stay. For further details, please see the entire medical record. TIME FOR THIS DISCHARGE: 60 minutes; greater than half of that was spent face to face with the patient and , and on the phone with the daughter discussing discharge plans and instructions. CONDITION ON DISCHARGE: Stable. Reviewed by BRITTNEE PORTILLO 03/26/17 1148 [id number]/[facility] #: [id number] CAL
[2017-03-26] MEDS: Insulin LISPRO* 1 UNITS UNIT SUBCUT SCH ×2 (09:54→13:15)
[2017-03-26 11:41] VITALS: BP 144/80
--- NOTE | 2017-03-26 16:25 | ED ---
I, Oh,Soohyun, scribed for César Oviedo MD on 03/23/17 at 2159 . Neurological HPI - HPI Summary HPI Summary: Limited HPI due to significant language barrier. This 66 y/o male presents to ED for intermittent slurred speech and left sided facial droop that occurred about an hour ago. "Tongue wasn't working right". Symptoms lasted about 10-15 minutes. Pt seemed confusion during the episode. EMS reports that pt was at his baseline without noted facial droop during their initial encounter on scene. Pt stresses that he feels fine at this moment, and does not recall the episode. No PMHx obtained. - History of Current Complaint Chief Complaint: EDNeurologicalDeficit Stated Complaint: POSS STROKE Time Seen by Provider: 03/23/17 21:28 Hx Obtained From: Patient, Family/Refrigeration Technician - daughter on phone Onset/Duration: Sudden Onset, Resolved Pain Intensity: 0 Associated Signs and Symptoms: Positive: Impaired Speech - Allergy/Home Medications Allergies/Adverse Reactions: Allergies Allergy/AdvReac Type Severity Reaction Status Date / Time No Known Allergies Allergy Verified 03/23/17 22:22 PMH/Surg Hx/FS Hx/Imm Hx Endocrine/Hematology History: Reports: Hx Diabetes Cardiovascular History: Reports: Hx Hypercholesterolemia, Hx Hypertension, Other Cardiovascular Problems/Disorders - Venous stasis Infectious Disease History: Reports: Traveled Outside the [place] in Last 30 Days - Family History Known Family History: Positive: Hypertension - Social History Hx Substance Use: No Substance Use Type: Reports: None Review of Systems Negative: Fever Negative: Chest Pain Neurological: Other - Positive for left facial droops. Positive confusion Positive: Slurred Speech All Other Systems Reviewed And Are Negative: Yes Physical Exam Triage Information Reviewed: Yes Vital Signs On Initial Exam: Initial Vitals Temp Pulse Resp BP Pulse Ox 99 F 93 18 145/86 95 03/23/17 21:06 03/23/17 21:06 03/23/17 21:06 03/23/17 21:06 03/23/17 21:06 Vital Signs Reviewed: Yes Appearance: Positive: Well-Appearing, No Pain Distress Skin: Positive: Warm, Skin Color Reflects Adequate Perfusion, Dry Head/Face: Positive: Normal Head/Face Inspection Eyes: Positive: Normal Neck: Positive: Supple, Nontender Respiratory/Lung Sounds: Positive: Breath Sounds Present Cardiovascular: Positive: RRR, Pulses are Symmetrical in both Upper and Lower Extremities Musculoskeletal: Positive: Strength/ROM Intact Neurological: Positive: Sensory/Motor Intact, Alert, Oriented to Person Place, Time, CN Intact II-III, Pronator Drift Present. Negative: Focal Deficit @, Slurred Speech Psychiatric: Positive: Affect/Mood Appropriate AVPU Assessment: Alert Diagnostics - Vital Signs Vital Signs Temp Pulse Resp BP Pulse Ox 03/23/17 21:06 99 F 93 18 145/86 95 - Laboratory Lab Results: Lab Results 03/23/17 03/23/17 03/23/17 Range/Units 22:00 22:00 22:00 WBC 7.4 (3.5-10.8) 10^3/ul RBC 5.03 (4.0-5.4) 10^6/ul Hgb 13.8 L (14.0-18.0) g/dl Hct 43 (42-52) % MCV 85 (80-94) fL MCH 27 (27-31) pg MCHC 33 (31-36) g/dl RDW 16 H (10.5-15) % Plt Count 259 (150-450) 10^3/ul MPV 9 (7.4-10.4) um3 Neut % (Auto) 65.8 (38-83) % Lymph % (Auto) 19.9 L (25-47) % [place] % (Auto) 9.6 H (1-9) % Eos % (Auto) 3.8 (0-6) % Baso % (Auto) 0.9 (0-2) % Absolute Neuts (auto) 4.9 (1.5-7.7) 10^3/ul Absolute Lymphs (auto) 1.5 (1.0-4.8) 10^3/ul Absolute Monos (auto) 0.7 (0-0.8) 10^3/ul Absolute Eos (auto) 0.3 (0-0.6) 10^3/ul Absolute Basos (auto) 0.1 (0-0.2) 10^3/ul Absolute Nucleated RBC 0 10^3/ul Nucleated RBC % 0 INR (Anticoag Therapy) (0.89-1.11) Sodium 136 (133-145) mmol/L Potassium 4.3 (3.5-5.0) mmol/L Chloride 103 (101-111) mmol/L Carbon Dioxide 29 (22-32) mmol/L Anion Gap 4 (2-11) mmol/L BUN 25 H (6-24) mg/dL Creatinine 0.93 (0.67-1.17) mg/dL Est GFR ( Amer) 103.9 (>60) Est GFR (Non-Af Amer) 80.8 (>60) BUN/Creatinine Ratio 26.9 H (8-20) Glucose 137 H (70-100) mg/dL POC Glucose (mg/dL) (70-100) mg/dL Hemoglobin A1c (Less than 6.0) % Lactic Acid 0.8 (0.5-2.0) mmol/L Calcium 9.1 (8.6-10.3) mg/dL Total Bilirubin 0.20 (0.2-1.0) mg/dL AST 18 (13-39) U/L ALT 15 (7-52) U/L Alkaline Phosphatase 62 (34-104) U/L Troponin I 0.01 (<0.04) ng/mL Total Protein 6.8 (6.4-8.9) g/dL Albumin 3.7 (3.2-5.2) g/dL Globulin 3.1 (2-4) g/dL Albumin/Globulin Ratio 1.2 (1-3) Triglycerides mg/dL Cholesterol mg/dL LDL Cholesterol mg/dL HDL Cholesterol mg/dL TSH (0.34-5.60) mcIU/mL Urine Color Urine Appearance Urine pH (5-9) Ur Specific [place] (1.010-1.030) Urine Protein (Negative) Urine Ketones (Negative) Urine Blood (Negative) Urine Nitrate (Negative) Urine Bilirubin (Negative) Urine Urobilinogen (Negative) Ur Leukocyte Esterase (Negative) Urine Glucose (Negative) Serum Alcohol < 10 (<10) mg/dL 03/23/17 03/23/17 03/24/17 Range/Units 22:00 23:55 04:41 WBC (3.5-10.8) 10^3/ul RBC (4.0-5.4) 10^6/ul Hgb (14.0-18.0) g/dl Hct (42-52) % MCV (80-94) fL MCH (27-31) pg MCHC (31-36) g/dl RDW (10.5-15) % Plt Count (150-450) 10^3/ul MPV (7.4-10.4) um3 Neut % (Auto) (38-83) % Lymph % (Auto) (25-47) % [place] % (Auto) (1-9) % Eos % (Auto) (0-6) % Baso % (Auto) (0-2) % Absolute Neuts (auto) (1.5-7.7) 10^3/ul Absolute Lymphs (auto) (1.0-4.8) 10^3/ul Absolute Monos (auto) (0-0.8) 10^3/ul Absolute Eos (auto) (0-0.6) 10^3/ul Absolute Basos (auto) (0-0.2) 10^3/ul Absolute Nucleated RBC 10^3/ul Nucleated RBC % INR (Anticoag Therapy) 0.88 L (0.89-1.11) Sodium (133-145) mmol/L Potassium (3.5-5.0) mmol/L Chloride (101-111) mmol/L Carbon Dioxide (22-32) mmol/L Anion Gap (2-11) mmol/L BUN (6-24) mg/dL Creatinine (0.67-1.17) mg/dL Est GFR ( Amer) (>60) Est GFR (Non-Af Amer) (>60) BUN/Creatinine Ratio (8-20) Glucose (70-100) mg/dL POC Glucose (mg/dL) (70-100) mg/dL Hemoglobin A1c (Less than 6.0) % Lactic Acid (0.5-2.0) mmol/L Calcium (8.6-10.3) mg/dL Total Bilirubin (0.2-1.0) mg/dL AST (13-39) U/L ALT (7-52) U/L Alkaline Phosphatase (34-104) U/L Troponin I (<0.04) ng/mL Total Protein (6.4-8.9) g/dL Albumin (3.2-5.2) g/dL Globulin (2-4) g/dL Albumin/Globulin Ratio (1-3) Triglycerides 79 mg/dL Cholesterol 155 mg/dL LDL Cholesterol 107 mg/dL HDL Cholesterol 32.0 mg/dL TSH 3.05 (0.34-5.60) mcIU/mL Urine Color Straw Urine Appearance Clear Urine pH 5.0 (5-9) Ur Specific [place] 1.011 (1.010-1.030) Urine Protein Negative (Negative) Urine Ketones Negative (Negative) Urine Blood Negative (Negative) Urine Nitrate Negative (Negative) Urine Bilirubin Negative (Negative) Urine Urobilinogen Negative (Negative) Ur Leukocyte Esterase Negative (Negative) Urine Glucose Negative (Negative) Serum Alcohol (<10) mg/dL 03/24/17 03/24/17 03/24/17 Range/Units 04:41 07:39 11:43 WBC (3.5-10.8) 10^3/ul RBC (4.0-5.4) 10^6/ul Hgb (14.0-18.0) g/dl Hct (42-52) % MCV (80-94) fL MCH (27-31) pg MCHC (31-36) g/dl RDW (10.5-15) % Plt Count (150-450) 10^3/ul MPV (7.4-10.4) um3 Neut % (Auto) (38-83) % Lymph % (Auto) (25-47) % [place] % (Auto) (1-9) % Eos % (Auto) (0-6) % Baso % (Auto) (0-2) % Absolute Neuts (auto) (1.5-7.7) 10^3/ul Absolute Lymphs (auto) (1.0-4.8) 10^3/ul Absolute Monos (auto) (0-0.8) 10^3/ul Absolute Eos (auto) (0-0.6) 10^3/ul Absolute Basos (auto) (0-0.2) 10^3/ul Absolute Nucleated RBC 10^3/ul Nucleated RBC % INR (Anticoag Therapy) (0.89-1.11) Sodium (133-145) mmol/L Potassium (3.5-5.0) mmol/L Chloride (101-111) mmol/L Carbon Dioxide (22-32) mmol/L Anion Gap (2-11) mmol/L BUN (6-24) mg/dL Creatinine (0.67-1.17) mg/dL Est GFR ( Amer) (>60) Est GFR (Non-Af Amer) (>60) BUN/Creatinine Ratio (8-20) Glucose (70-100) mg/dL POC Glucose (mg/dL) 92 98 (70-100) mg/dL Hemoglobin A1c 6.3 H (Less than 6.0) % Lactic Acid (0.5-2.0) mmol/L Calcium (8.6-10.3) mg/dL Total Bilirubin (0.2-1.0) mg/dL AST (13-39) U/L ALT (7-52) U/L Alkaline Phosphatase (34-104) U/L Troponin I (<0.04) ng/mL Total Protein (6.4-8.9) g/dL Albumin (3.2-5.2) g/dL Globulin (2-4) g/dL Albumin/Globulin Ratio (1-3) Triglycerides mg/dL Cholesterol mg/dL LDL Cholesterol mg/dL HDL Cholesterol mg/dL TSH (0.34-5.60) mcIU/mL Urine Color Urine Appearance Urine pH (5-9) Ur Specific [place] (1.010-1.030) Urine Protein (Negative) Urine Ketones (Negative) Urine Blood (Negative) Urine Nitrate (Negative) Urine Bilirubin (Negative) Urine Urobilinogen (Negative) Ur Leukocyte Esterase (Negative) Urine Glucose (Negative) Serum Alcohol (<10) mg/dL Result Diagrams: 03/23/17 22:00 03/23/17 22:00 Lab Statement: Any lab studies that have been ordered have been reviewed, and results considered in the medical decision making process. - CT Brain CT Interpretation: No Acute Changes - No acute brain parenchymal abnormality. No hemorrhage. mass or acute territorial infarct. Chronic infarct left occipital lobe. Clear visualized paranasal sinuses. Visualied mastoid air cells are clear. CT Interpretation Completed By: Radiologist - See EMR for official reading. Currently pending - EKG 2201 Cardiac Rate: NL - 96 bpm EKG Rhythm: Sinus Rhythm Course/Dx - Course Course Of Treatment: Consultation: Dr. Rivero (Neurology) at [address] Aguilar (Hospitalist) at 2316 PM -- accepted for admission. Assessment/Plan: Mr. Valentine presented with a good story for TIA but no evidence for CVA so a COde Celeste was not called but he was W/U'd for TIA and admitted to the hospitalist service with neurology consult. - Diagnoses Provider Diagnoses: TIA (transient ischemic attack) - Physician Notifications Discussed Care Of Patient With: Jay Rivero Time Discussed With Above Provider: 21:45 Discharge - Discharge Plan Condition: Stable Disposition: ADMITTED TO [facility] The documentation as recorded by the Iker roque Soohyun accurately reflects the service I personally performed and the decisions made by me, César Oviedo MD.
--- NOTE | 2017-03-27 03:36 | PN ---
PROGRESS NOTE: DATE OF FOLLOWUP: 03/26/17 HISTORY OF PRESENT ILLNESS: Mr. Valentine was admitted with ischemic stroke with hemorrhagic conversion. 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 Rita Dalton translating in Korean to once again go through differential of etiology of stroke, current treatment, further testing that is needed, precautions, diet changes. Over 15 minutes were spent in direct face-to- face patient care, with 50% of the time was spent in education and counseling. All questions were answered. [id number]/[facility] #: [id number] CAL
== END 2017-03-26 15:09 | disposition home or self-care (01) | DRG 45 ==
LOC: ED 21:06 → MEDTELE 23:19 → OBSVTOIN 03-24 14:35
PROVIDERS: ADMIT Hospitalist; ATTEND Internal Medicine
DX: I63.9 Cerebral infarction, unspecified (principal); I61.1 Nontraumatic intracerebral hemorrhage in hemisphere, cortical; Q21.1 Atrial septal defect; I10 Essential (primary) hypertension; E11.9 Type 2 diabetes mellitus without complications; E66.9 Obesity, unspecified; E78.00 Pure hypercholesterolemia, unspecified; R29.810 Facial weakness; E78.5 Hyperlipidemia, unspecified; I07.1 Rheumatic tricuspid insufficiency; I87.2 Venous insufficiency (chronic) (peripheral); Z98.42 Cataract extraction status, left eye; Z98.41 Cataract extraction status, right eye; Z83.79 Family history of other diseases of the digestive system; Z68.31 Body mass index [BMI] 31.0-31.9, adult; Z82.49 Family history of ischemic heart disease and other diseases of the circulatory system; Z86.73 Personal history of transient ischemic attack (TIA), and cerebral infarction without residual deficits; Z79.82 Long term (current) use of aspirin; Z79.84 Long term (current) use of oral hypoglycemic drugs
CPT/HCPCS: 36415; 70450; 70496; 70498; 70551; 80053; 80061; 80320; 81003; 83036; 83605; 84443; 84484; 85025; 85610; 93005; 93306; 93970; 99283; A9270-GY; G0378; G0480; J1644